=== PATIENT | female | born 2000 | race Caucasian/White ===

== ENCOUNTER 2019-02-02 10:01 | Outpatient (CLI) | payer OTHER ==
--- NOTE | 2019-02-02 12:00 | ULT ---
OB ULTRASOUND: HISTORY: patient. Evaluate size, dates, anatomy, and cervical length. COMPARISON: None. TECHNIQUE: Sagittal and transverse imaging of the gravid uterus is performed. FINDINGS: Single intrauterine gestation. heart tones with a rate of 137 b.p.m. Breech presentation. An terior placenta. Cervical length 3.3-3.7 cm. There does appear to be a small amount of fluid in the proximal cervix. Amniotic fluid index is 13.3 cm. BIOMETRY: BPD 5.26 cm, 22 weeks 0 days Head circumference 19.79 cm, 22 weeks 0 days Abdominal circumference 17.09 cm, 22 weeks 0 days Femur length 3.88 cm, 22 weeks 3 days Average age by sonography is 22 weeks 1 day. Estimated weight is 484 gm. SURVEY: The following structures are well visualized and have a normal appearance: bladder, 3-vessel cord, e xtremities, cerebellum, lateral ventricle. Limited evaluation of the stomach, 4-chamber heart, ciste rna magna, kidneys, spine, nose and lips. Visualized extremities are within normal limits. IMPRESSION: 1. survey as above. 2. Cervical length as above. Trace amount of fluid in the cervix. 3. Anterior placenta. No previa. 4. Average age by sonography is 22 weeks 1 day. weight is 484 gm. CODE T POS: OFF
== END 2019-02-02 10:02 | disposition home or self-care (01) ==
LOC: SCSULT 10:01
PROVIDERS: ATTEND Family Medicine
DX: Z34.82 Encounter for supervision of other normal pregnancy, second trimester (principal); Z3A.22 22 weeks gestation of pregnancy
CPT/HCPCS: 76805

== ENCOUNTER 2019-06-04 19:30 | Inpatient (IN) | payer OTHER ==
[~2019-06-04 19:30] MED LIST: Bupivacaine/Epinephrine 0.25% 30 ML VIAL ONE; ePHEDrine/0.9% NaCl/PF SYRINGE 50 mg/10 ml ONE
[2019-06-04] MEDS ORDERED: Methylergonovine 0.2 MG/ML VIAL IM PRN (21:22)
[2019-06-04] MEDS ORDERED: Butorphanol Tartrate 1 MG/ML VIAL SLOW IVP PRN (21:22)
[2019-06-04] MEDS ORDERED: Promethazine HCl 25 MG/ML VIAL IM PRN (21:22)
[2019-06-04] MEDS ORDERED: Misoprostol 200 MCG TAB PR PRN (21:22)
[2019-06-04] MEDS ORDERED: Diphenoxylate HCl/Atropine Tablet PO PRN (21:22)
[2019-06-04] MEDS ORDERED: Lidocaine 1% (PF) 30 ML VIAL SC PRN (21:22)
[2019-06-04] MEDS ORDERED: Ibuprofen 800 MG TAB PO PRN (21:22)
[2019-06-04] MEDS ORDERED: Ondansetron PF 4 MG/2 ML Vial IVP PRN (21:22)
[2019-06-04] MEDS ORDERED: NS w/ Oxytocin 10 units 500 ML IV SCH ×2 (21:22)
[2019-06-04] MEDS ORDERED: Carboprost 250 MCG/ML AMP IM PRN (21:22)
[2019-06-04] MEDS ORDERED: NS / Oxytocin 40 units/1000ml 1,000 ML IV PRN (21:22)
[2019-06-04] MEDS ORDERED: hydrALAZINE 20 MG/ML VIAL SLOW IVP PRN (21:22)
[2019-06-04] MEDS ORDERED: HYDROcodone/Acetaminophen 5/325 mg Tablet PO PRN (21:22)
[2019-06-04 21:27] VITALS: BMI 37.8
[2019-06-04] MEDS: Lactated Ringer's 1,000 ML IV SCH (21:37)
[2019-06-04 21:57] LABS: Hemoglobin 11.3 g/dL (12.0-16.0); Mean Corpuscular HGB CONC 34.4 g/dL (32.0-36.0); Mean Corpuscular Hemoglobin 31.3 pg (25.0-35.0); Mean Corpuscular Volume 91.2 fL (78.0-98.0); Mean Platelet Volume 8.1 fL (7.4-10.4); Platelet Count 281 thou/uL (130-400); RBC Distribution Width 11.8 % (11.5-14.5); Red Blood Cell (RBC) Count 3.59 mill/uL (4.00-5.20); White Blood Cell (WBC) Count 11.1 thou/uL (4.8-10.8)
[2019-06-04 22:30] LABS: Syphilis Antibody Nonreactive (Nonreactive); Syphilis Antibody Index 0.04 S/CO (<1.00 Non-Reactive)
[2019-06-04] MEDS: Misoprostol 100 MCG TAB PO SCH (22:48)
[2019-06-04 23:38] LABS: HBSAg Index 0.27 S/CO (0-0.99); Hep B Surf Ag Non-Reactive S/CO (NonReactive)
[2019-06-05] MEDS: Lactated Ringer's 1,000 ML IV SCH ×3 (00:13→10:08)
[2019-06-05] MEDS ORDERED: Lidocaine 1.5%/Epinephrine 1:200,000 5 ML AMPUL IJ ONE (03:23)
[2019-06-05] MEDS ORDERED: Fentanyl 4 mcg/Bup 0.1% Cadd 100 ML ONE (03:24)
[2019-06-05] MEDS ORDERED: Ondansetron PF 4 MG/2 ML Vial IVP PRN ×3 (04:03→14:14)
[2019-06-05] MEDS ORDERED: Acetaminophen 325 MG TAB PO PRN (04:03)
[2019-06-05] MEDS ORDERED: ePHEDrine/0.9% NaCl/PF SYRINGE 50 mg/10 ml SLOW IVP PRN (04:03)
[2019-06-05] MEDS ORDERED: Naloxone HCl 0.4 mg/ml Vial IVP PRN ×4 (04:03→12:31)
[2019-06-05] MEDS ORDERED: diphenhydrAMINE 50 MG/ML VIAL IVP PRN ×2 (04:03→12:31)
[2019-06-05] MEDS ORDERED: Lactated Ringer's 500 ML IV PRN (04:03)
[2019-06-05] MEDS ORDERED: Promethazine HCl 25 MG/ML VIAL IM PRN ×3 (04:03→14:14)
[2019-06-05] MEDS ORDERED: Communication Order-Pharmacy FS SCH ×2 (04:15→12:45)
[2019-06-05] MEDS ORDERED: Fentanyl 4 mcg/Bupivacaine 0.1% Cassette 100 ML EPIDURAL SCH (04:15)
[2019-06-05] MEDS ORDERED: Bicitra 30 ML UDCUP PO SCH (09:00)
[2019-06-05] MEDS ORDERED: CEFAZOLIN 2 GM in Premix Bag 1 BAG IVPB SCH (09:00)
[2019-06-05] MEDS ORDERED: Azithromycin 500 MG in Sodium Chloride 0.9% 250 ML 250 ML IVPB SCH (09:00)
[2019-06-05] MEDS ORDERED: CEFAZOLIN 2 GM in Sodium Chloride 0.9% 100 ML IVPB SCH (09:15)
[2019-06-05] MEDS ORDERED: MORPHINE 5 MG/10 ML PF VIAL ONE (11:21)
[2019-06-05] MEDS ORDERED: Oxytocin 10 UNITS/ML VIAL ONE ×2 (11:22→12:08)
[2019-06-05] MEDS ORDERED: ePHEDrine/0.9% NaCl/PF SYRINGE 50 mg/10 ml ONE (11:22)
[2019-06-05] MEDS ORDERED: Lidocaine 2% 10 ML INJ ONE (11:22)
[2019-06-05] MEDS ORDERED: EPINEPHrine 1 MG/10 ML Abboject SYRINGE ONE (11:22)
[2019-06-05] MEDS ORDERED: Ondansetron PF 4 MG/2 ML Vial ONE (11:22)
[2019-06-05] MEDS ORDERED: Midazolam HCl 2 mg/2 ml Vial ONE (12:06)
[2019-06-05] MEDS ORDERED: Fentanyl 100 MCG/2 ML VIAL ONE (12:19)
--- NOTE | 2019-06-05 12:26 | PDOC.OPDEL ---
OB Operative/Delivery Note Delivery Dr/Surgeon: Dr. Taylor Assist: Dr. Reynolds Pre-Delivery Diagnosis: non-reassuring tracing Procedure/Post Delivery Dx: primary low transverse CS Weeks gestation: 40 (40w1d) Anesthesia: spinal - Findings A Sex: male - Additional Findings/Plan Placenta delivered: manual removal findings: low transverse hysterotomy without extension Estimated blood loss: 600 Compilations/Other Findings: Pre-operative Diagnosis: 1) Term Intrauterine 2) intolerance of labor with non-reassuring heart tracing Post-operative Diagnosis: 1) Term Intrauterine , delivered 2) intolerance of labor with non-reassuring heart tracing Indications: The patient is a 18 y/o @ 40w1d who presents for induction of labor, however the fetus did not tolerate labor with recurrent decelerations and so the decision was made for primary section. Procedure: After risks, benefits, and alternatives were explained to the patient , she gave informed consent. Pre-operative antibiotics included cefazolin 2g IV. The patient was taken to the operative room and spinal anesthesia was initiated. She was placed in the supine position with a left tilt and prepped and draped in sterile fashion. A Pfannenstiel incision was made with a scalpel and carried down to the level of the fascia which was sharply nicked. The fascial cut was extended bilaterally with Bansal scissors. The inferior and superior edges of the fascia were elevated with Morgan clamps and the underlying rectus muscles were sharply and bluntly dissected free. The recti were divided digitally and retracted manually. The peritoneum was entered bluntly and retracted manually. Randall O retractor was placed. A low transverse score was made with the scalpel and the uterus was entered in the midline bluntly. Clear fluid was seen. The hysterotomy was extended manually. The was noted to be vertex and easily delivered by fundal pressure. Mouth and nares were bulb suctioned. Cord clamped and cut after 30 seconds delayed cord clamping. Grossly normal male was handed to waiting nurse. Cord blood obtained. Placenta was manually extracted, found to be intact with 3 vessel cord and sent to lab for pathology. The uterus was externalized and the endometrium was curetted with a dry lap. The hysterotomy was closed with a running locking 0-vicryl suture. Following this, hemostasis was noted. The abdomen was irrigated with saline and suctioned free of clots. Seprafilm was placed over the anterior aspect of the uterus. The uterus was internalized and the hysterotomy was again noted to be hemostatic. The peritoneum was closed with running, non-locking 3-0 vicryl suture. The fascia was closed with a running, non-locking 0-PDS suture. The subcutaneous tissue was irrigated and found to be hemostatic and this was approximated with interrupted 3-0 vicryl suture. The skin was approximated with jeff and a pressure dressing was placed. All counts were correct. The patient tolerated the procedure well and was taken to the recovery room in stable condition. Time of delivery: 1154 on 06/05/19 EBL: 600mL Complications: none Specimens: Cord blood sent to lab for blood type Findings: Grossly normal male infant. Grossly normal placenta with 3 vessel cord sent to lab for pathology. Drains: Norris to gravity draining clear urine. Post delivery plan: routine recovery
[2019-06-05] MEDS ORDERED: L&D-Morphine 4 MG/ML VIAL SLOW IVP PRN (12:31)
[2019-06-05] MEDS ORDERED: Naloxone HCl 0.4 mg/ml Vial IV PRN (12:31)
[2019-06-05] MEDS ORDERED: Ketorolac Tromethamine 30 MG/ML VIAL IVP PRN (12:31)
[2019-06-05] MEDS ORDERED: Promethazine HCl 25 MG SUPP PR PRN (12:31)
[2019-06-05] MEDS ORDERED: HYDROmorphone 2 MG/ML VIAL SLOW IVP PRN (12:31)
[2019-06-05] MEDS ORDERED: Meperidine HCl/PF 25 MG/ML VIAL SLOW IVP PRN (12:31)
[2019-06-05] MEDS ORDERED: Ondansetron HCl/PF 4 MG/2 ML Vial IVP PRN (12:31)
[2019-06-05] MEDS ORDERED: Ketorolac Tromethamine 30 MG/ML VIAL IVP SCH (12:45)
[2019-06-05] MEDS ORDERED: Ibuprofen 800 MG TAB PO SCH (14:00)
[2019-06-05] MEDS ORDERED: Bisacodyl 10 MG SUPP PR PRN (14:14)
[2019-06-05] MEDS ORDERED: diphenhydrAMINE 25 MG CAP PO PRN (14:14)
[2019-06-05] MEDS ORDERED: Lanolin Ointment 7 GM TUBE TOP PRN (14:14)
[2019-06-05] MEDS ORDERED: hydrALAZINE 20 MG/ML VIAL SLOW IVP PRN (14:14)
[2019-06-05] MEDS ORDERED: NS / Oxytocin 40 units/1000ml 1,000 ML IV SCH (14:14)
[2019-06-05] MEDS ORDERED: Ketorolac Tromethamine 30 MG/ML VIAL ONE (15:30)
[2019-06-05] MEDS: Docusate Calcium (SURFAK) 240 MG CAP PO SCH (21:36)
[2019-06-05] MEDS: Ketorolac Tromethamine 30 MG/ML VIAL IVP PRN (21:37)
[2019-06-06] MEDS: Lactated Ringer's 1,000 ML IV SCH (00:16)
[2019-06-06] MEDS ORDERED: Meperidine HCl/PF 25 MG/ML VIAL IM PRN (00:45)
[2019-06-06] MEDS: Ferrous Sulfate 325 MG TAB PO SCH ×3 (02:37→22:34)
[2019-06-06] MEDS: Misoprostol 100 MCG TAB PO SCH ×2 (02:39→02:40)
[2019-06-06] MEDS: Simethicone Chewable 80 MG TAB PO PRN ×2 (05:01→13:41)
[2019-06-06] MEDS: Ketorolac Tromethamine 30 MG/ML VIAL IVP PRN (05:02)
[2019-06-06 07:24] LABS: Hemoglobin 10.8 g/dL (12.0-16.0); Mean Corpuscular Hemoglobin 30.1 pg (25.0-35.0); Platelet Count 234 thou/uL (130-400); RBC Distribution Width 11.8 % (11.5-14.5); White Blood Cell (WBC) Count 13.5 thou/uL (4.8-10.8)
[2019-06-06] MEDS ORDERED: Adacel (T-DAP) 0.5 ML SYRINGE IM ONE (09:00)
[2019-06-06] MEDS: Prenatal Vitamin 1 TAB PO SCH (09:00)
[2019-06-06] MEDS: HYDROcodone/Acetaminophen 5/325 mg Tablet PO PRN ×4 (09:00→20:59)
[2019-06-06] MEDS: Docusate Calcium (SURFAK) 240 MG CAP PO SCH ×2 (09:00→21:01)
[2019-06-06] MEDS: Ibuprofen 800 MG TAB PO SCH ×2 (13:41→21:01)
[2019-06-07] MEDS: Simethicone Chewable 80 MG TAB PO PRN (00:18)
[2019-06-07] MEDS: HYDROcodone/Acetaminophen 5/325 mg Tablet PO PRN ×3 (05:41→21:51)
[2019-06-07] MEDS: Ibuprofen 800 MG TAB PO SCH ×3 (05:42→21:50)
[2019-06-07] MEDS: Prenatal Vitamin 1 TAB PO SCH (08:37)
[2019-06-07] MEDS: Docusate Calcium (SURFAK) 240 MG CAP PO SCH ×2 (08:37→21:50)
[2019-06-07] MEDS: Ferrous Sulfate 325 MG TAB PO SCH (08:37)
[2019-06-08] MEDS: Ferrous Sulfate 325 MG TAB PO SCH ×3 (03:07→19:36)
[2019-06-08] MEDS: Ibuprofen 800 MG TAB PO SCH ×3 (05:59→21:42)
[2019-06-08] MEDS: HYDROcodone/Acetaminophen 5/325 mg Tablet PO PRN ×2 (08:57→16:27)
[2019-06-08] MEDS: Prenatal Vitamin 1 TAB PO SCH (08:57)
[2019-06-08] MEDS: Docusate Calcium (SURFAK) 240 MG CAP PO SCH ×2 (08:57→21:42)
[2019-06-09] MEDS: HYDROcodone/Acetaminophen 5/325 mg Tablet PO PRN (03:36)
[2019-06-09] MEDS: Ibuprofen 800 MG TAB PO SCH (05:55)
[2019-06-09 09:14] VITALS: BP 132/82; TEMP 98.8
[2019-06-09] MEDS: Prenatal Vitamin 1 TAB PO SCH (09:46)
[2019-06-09] MEDS: Docusate Calcium (SURFAK) 240 MG CAP PO SCH (09:47)
[2019-06-09] MEDS: Ferrous Sulfate 325 MG TAB PO SCH (12:26)
== END 2019-06-09 12:45 | disposition home or self-care (01) | DRG 788 ==
LOC: L&D 20:55 → 3SW 06-05 14:32
PROVIDERS: ADMIT Family Medicine; ATTEND Family Medicine
PROC: 10D00Z1 Extraction of Products of Conception, Low, Open Approach (ICD-10-PCS; principal; 2019-06-05)
DX: O76 Abnormality in fetal heart rate and rhythm complicating labor and delivery (principal); Z3A.40 40 weeks gestation of pregnancy; Z37.0 Single live birth; O36.5930 Maternal care for other known or suspected poor fetal growth, third trimester, not applicable or unspecified
CPT/HCPCS: 36415; 51702; 85027; 86780; 86850; 86900; 86901; 87340; 88307; J0171; J0456; J0595; J0690; J1885; J2001; J2250; J2274; J2405; J2590; J3010; J3490; J7050